=== PATIENT | male | born 1975 | race Hispanic/Latino ===

== ENCOUNTER 2022-08-02 10:00 | Emergency (ER) | payer SELFPAY ==
[~2022-08-02] VITALS: Ht 160 cm; Wt 75.0 kg
[2022-08-02] MEDS ORDERED: NAPROXEN500 MG PO (12:36)
[2022-08-02] MEDS ORDERED: CEPHALEXIN500 MG PO (12:36)
[2022-08-02] MEDS ORDERED: COLCHICINE0.6 M2 PO (12:36)
[2022-08-02 12:46] VITALS: BP 121/88
== END 2022-08-02 13:00 | disposition home or self-care (01) | DRG 556 ==
LOC: ED 10:00
DX: M79.671 Pain in right foot (principal)